=== PATIENT | female | born 1965 | race Caucasian/White ===

== ENCOUNTER → 2016-11-19 | Outpatient (CLI) | payer OTHER ==
[~2016-11-19] MED LIST: ASTELIN30 ML; AVELOX 400 MG400 MG PO; AVIANE1 EACH PO; CELEBREX PO; CENTRUM TABLET1 TAB PO; FLONASE 0.05%50 MCG NS; NASONEX17 GM NS; OXYCODONE PO; OXYCONTIN PO; PREDNISONE 10 M10 M1 PO; SUDAFED30 MG PO; WOMEN S PO; ZOLOFT 50 MG TA50 M1 PO; [UNRECOGNIZED DRUG - OTHER] PO
== END ==
LOC: RAD 16:33
DX: K59.00 Constipation, unspecified (principal); R10.9 Unspecified abdominal pain

== ENCOUNTER → 2017-04-11 | Outpatient (CLI) | payer OTHER | LOC: NUC 06:50 | DX: R07.9 Chest pain, unspecified (principal) ==

== ENCOUNTER → 2017-04-14 | Outpatient (CLI) | payer OTHER | LOC: CAT 10:25 | DX: Z13.6 Encounter for screening for cardiovascular disorders (principal) ==

== ENCOUNTER → 2017-11-10 | Outpatient (CLI) | payer OTHER | LOC: RAD 08:58 | DX: Z12.31 Encounter for screening mammogram for malignant neoplasm of breast (principal) ==

== ENCOUNTER → 2018-01-24 | Outpatient (CLI) | payer OTHER | LOC: RAD 07:51 | DX: R13.19 Other dysphagia (principal); R10.13 Epigastric pain ==

== ENCOUNTER → 2020-08-06 | Outpatient (CLI) | payer OTHER ==
[~2020-08-06] MED LIST changes: +AZELASTINE137 MCG/0. NASAL; +DAILY MULTIPLE1 EACH PO
== END ==
LOC: LAB 07:39
PROVIDERS: ATTEND Orthopaedic Surgery Foot and Ankle Surgery
DX: Z01.812 Encounter for preprocedural laboratory examination (principal); Z20.828 Contact with and (suspected) exposure to other viral communicable diseases

== ENCOUNTER → 2020-08-18 | Outpatient (CLI) | payer OTHER ==
[~2020-08-18] MED LIST changes: +PERCOCET 7.5-31 EAC1 PO
== END ==
LOC: LAB 13:26
PROVIDERS: ATTEND Student in an Organized Health Care Education/Training Program
DX: Z01.812 Encounter for preprocedural laboratory examination (principal); Z20.828 Contact with and (suspected) exposure to other viral communicable diseases

== ENCOUNTER → 2020-08-19 | Day surgery (SDC) | payer OTHER ==
[~2020-08-19] VITALS: Ht 177.8 cm; Wt 74.8 kg
[2020-08-19 13:48] VITALS: BP 145/89
[2020-08-19 15:53] VITALS: BP 145/89
--- NOTE | 2020-08-19 16:26 | EKG ---
[address] [place] [address] ELECTROCARDIOGRAM REPORT Name: PEMA FLYNN Room #: REG [facility]#: [id number] Admission: 08/19/20 Attend Phys: Rashad Nails MD Discharge: Date of : 63 Report #: [id number] [facility] Test Date: 2020-08-19 Test Time: 13:29:28 Pat Name: PEMA FLYNN Department: Room: Gender: F [employer] Reporter: AYUSH : 1965 Requested By: Rashad Nails Order Number: [id number] : Dustin Lai Measurements Intervals Sheridan Rate: 55 P: 26 CA: 146 QRS: 1 QRSD: 99 T: 1 QT: 431 QTc: 413 Interpretive Statements Sinus rhythm Borderline T abnormalities, inferior leads Compared to ECG 11/17/2010 03:07:03 T-wave abnormality now present Electronically Signed On 08-19-2020 16:26:33 TIP PRINTER by Dustin Lai [email or web address] <ELECTRONICALLY SIGNED> By: Dustin Lai MD, [facility] 08/19/20 1626 1329 28 Dustin Lai MD, FACC /EPI
--- NOTE | 2020-08-24 18:18 | O ---
[facility] [place] [address] OPERATIVE REPORT Name: RINAPEMA RJ Room #: REG [facility].#: [id number] Admission: 08/19/20 Attend Phys: Rashad Nails MD Discharge: Date of : 63 Report #: [id number] THIS REPORT FOR: cc: Kehinde Flynn MD, Daniel J. MD Kneidel,Rashad Maurice MD ~ DATE OF SERVICE: 08/19/2020 PREOPERATIVE DIAGNOSES: 1. Right hallux valgus. 2. Right fourth hammertoe. 3. Right fifth toe flexion contracture. POSTOPERATIVE DIAGNOSES: 1. Right hallux valgus. 2. Right fourth hammertoe. 3. Right fifth toe flexion contracture. 4. Right third toe flexion contracture. SURGEON: Dr. Rashad Nails. DERRICK MAN: Susan Fragoso. ANESTHESIA: General. ESTIMATED BLOOD LOSS: Minimal. DRAINS: No drains. TOURNIQUET TIME: One hour and 30 minutes. DESCRIPTION OF PROCEDURE: The patient brought to the operating room where she was placed under general anesthesia. Once under adequate general anesthesia, her right lower extremity was prepped and draped in a sterile manner. The extremity was elevated, exsanguinated and tourniquet placed at 300 mmHg. A dorsal incision over the first tarsometatarsal joint was made. This was dissected down through the soft tissue to the joint, which was then released with a 15 blade. An osteotome and a sagittal saw was then run through this to release it completely. A rotational ____ pin was placed. A sufficient rotation was noted. The separate dorsal incision at the first webspace was made. This was dissected down through soft tissue to the metatarsophalangeal joint. The abductor hallucis tendon was then released off of the sesamoid complex. The joint capsule was fenestrated along with the plantar attachments at the proximal phalanx. A dorsal incision over the second metatarsal was made and the C-clamp was then placed, excellent rotational and longitudinal alignment was then [address] [address] OPERATIVE REPORT Name: PEMA FLYNN Room #: [facility] [id number] Admission: 08/19/20 Attend Phys: Rashad Nails MD Discharge: Date of : 63 Report #: [id number] achieved utilizing the clamp. This was then pinned into place and the ____ was then placed. The bone cuts were then made at the medial cuneiform and the first metatarsal. These were satisfactory. The intervening bone was then removed from the bone cuts with a rongeur and subsequently compression across the joint was achieved after fenestrating the joint with a drill. Excellent alignment was achieved as verified under fluoroscopy. A single compression screw was placed across the joint from lateral to medial, pinned, fixation then across the joint was achieved with 2 plates, one dorsal and one medial. Excellent fixation was achieved with excellent alignment. The patient did have a spur distally, which was then removed through a 1 cm incision over the medial eminence. This wound was irrigated copiously and the capsular layer was repaired with 2-0 Vicryl suture. A dorsal incision over the fourth toe proximal phalanx was then made with dissection carried down to the head of the proximal phalanx, which was then exposed, a sagittal saw were used to resect this. A small rongeur was used to denude the cartilage at the base of the middle phalanx. A drill was then used for the Smart Toe implant and fixation was then achieved with a size 15 Smart Toe implant. Excellent fixation and alignment was achieved as verified under fluoroscopy. A tulalip blade was utilized to perform a flexor tenotomy at both the third and fifth toes due to continued flexion contracture. Excellent alignment was achieved once complete. The wounds were then irrigated copiously and closed with 3-0 Vicryl in the subcutaneous tissues and 3-0 nylon for the skin. The wound was dressed with Xeroform, 4 x 4s, and sterile soft compressive dressing was placed. Tourniquet was let down at 90 minutes. Toes were pink and warm with good capillary refill. There were no complications from the procedure. The patient tolerated the procedure well and was taken to recovery room without incident. <ELECTRONICALLY SIGNED> By: Rashad Nails MD 08/24/20 1818 [id number] [id number] Rashad Nails MD /nt
== END | disposition home or self-care (01) ==
LOC: OR 12:41
PROVIDERS: ATTEND Orthopaedic Surgery Foot and Ankle Surgery
DX: M20.11 Hallux valgus (acquired), right foot (principal); M20.41 Other hammer toe(s) (acquired), right foot; M21.271 Flexion deformity, right ankle and toes; F32.9 Major depressive disorder, single episode, unspecified; Z98.890 Other specified postprocedural states; Z79.899 Other long term (current) drug therapy; Z85.828 Personal history of other malignant neoplasm of skin; Z90.711 Acquired absence of uterus with remaining cervical stump; Z96.652 Presence of left artificial knee joint; Z88.8 Allergy status to other drugs, medicaments and biological substances
CPT/HCPCS: 50010; 50101; 50386; 50951; 56524; 56527; 57091; 57180; 58441; 62110; 62900; 70005

== ENCOUNTER 2021-03-05 06:46 | Inpatient (IN) | payer OTHER ==
[~2021-03-05] VITALS: Ht 177.8 cm; Wt 74.8 kg
[~2021-03-05 06:46] MED LIST changes: +BACTRIM DS TAB1 EACH PO; +MULTI VITAMIN1 EACH PO; +TYLENOL EXTRA500 MG PO
[2021-03-05 08:25] VITALS: BP 138/61
[2021-03-05 11:36] VITALS: BP 134/97
[2021-03-05 12:39] VITALS: BP 118/83
--- NOTE | 2021-03-05 14:11 | NUR ---
ASSESSMENT: CM REVIEWED CHART AND SPOKE WITH PATIENT AT THE BEDSIDE. PT IS ALERT AND ORIENTED X4. PT IS S/P RIGHT TKA. PT REPORTS LIVING IN A HOUSE WITH HER HUSUBAND AND SON WILL BE THERE FOR ABOUT ANOTHER COUPLE WEEKS. PT REPORTS HAVING ABOUT 2 STEPS TO ENTER THE HOME AND NO STEPS SHE HAS TO USE ONCE INSIDE. PT REPORTS BEING INDEPENDENT WITH ADLS. PT REPORTS NEEDING A WALKER FOR DISCHARGE AND HAS NO PREFERENCE OF [employer]. CM NOTIFIED LIASON FROM [facility] TO VERIFY INSURANCE. PT REPORTS THAT SHE DOES NOT CURRENTLY HAVE OUTPATIENT THERAPY ARRANGED. PT REPORTS HAVING HH PREVIOUSLY IN THE PAST BUT UNSURE THE AGENCY. CM WILL CONTINUE TO FOLLOW TO ASSIST NEEDED.
[2021-03-05 15:03] VITALS: BP 118/83
[2021-03-05 15:44] VITALS: BP 116/79
--- NOTE | 2021-03-05 17:16 | O ---
[facility] [place] [address] OPERATIVE REPORT Name: PEMA FLYNN Room #: 434-P [facility]..#: [id number] Admission: 03/05/21 Attend Phys: Torito Delaney MD Discharge: Date of : 63 Report #: [id number] THIS REPORT FOR: cc: Kehinde Flynn MD, Daniel J. MD Clymer, David J. MD ~ DOC #: [id number] Torito Delaney MD DATE OF SERVICE: 03/05/2021 PREOPERATIVE DIAGNOSIS: Degenerative arthritis, right knee. POSTOPERATIVE DIAGNOSIS: Degenerative arthritis, right knee. PROCEDURE: Right total knee arthroplasty. SURGEON: Torito Delaney MD INDICATIONS: This healthy, active and fit 55-year-old female has had early degenerative arthritis involving both knees. She underwent left total knee replacement a number of years ago with good result. Now, she is having progressive right knee pain, although her plain x-ray studies are showing only mild to moderate degenerative change. Her symptoms are rather severe and unresponsive to conservative measures. Given this, she elected to go ahead with total knee replacement. DESCRIPTION OF PROCEDURE: The patient was taken to the operating room where she was placed under general anesthesia. Prophylactic intravenous antibiotics were administered. The right knee and leg were meticulously prepped and draped. A thigh tourniquet inflated to 300 mmHg. An anterior longitudinal skin incision was made and carried through the medial retinaculum. The patella was reflected laterally. Moderate chondromalacia on the patella and the lateral femoral condyle was noted. There was also moderate sized osteochondral defect with some loosening of the surrounding cartilage. There was moderate degenerative tearing of both the medial and lateral meniscus. Findings were consistent with moderate degenerative change. The [employer] knee system was utilized. Intramedullary guides were used on both the femur and the tibia. The femur was cut in 5 degrees of valgus and the tibia cut perpendicular to the long axis of the bone with a 3-degree posterior slope. The femur seemed best suited for a size 5 femoral component. The tibia was best suited for a size 4 tibial component. A trial reduction was performed and a 10 mm insert fit nicely and resulted in good knee range of motion and good stability. The patellar surface was resected and a 35 mm patellar button fit nicely. Appropriate anchor holes were created. [address] [address] OPERATIVE REPORT Name: PEMA FLYNN Room #: 434[place] [facility]#: [id number] Admission: 03/05/21 Attend Phys: Torito Delaney MD Discharge: Date of : 63 Report #: [id number] The intramedullary canal was blocked with bone block on both the femoral and tibial sides. Methyl methacrylate cement was mixed and injected into the porous surface of the proximal tibia. The [employer] size 4 Cassi II right nonporous tibial baseplate was selected. This was impacted into the tibia in appropriate position. It seated nicely and appeared to be secure. Excess cement was removed around its margin. The size 3-4 10 mm Legion cruciate retaining high flexion polyethylene insert was snapped into place. It seated nicely and appeared to be secure. The size 5 right cruciate retaining Legion porous femoral component was impacted on the distal femur. It also seated nicely and appeared to be secure. A 35 mm Cassi II patellar resurfacing button was applied. Using a cement anchor holes, it was secured with a patellar clamp until the cement had hardened. Once the cement was secure and firm range of motion, alignment and stability were once again assessed and felt to be satisfactory. The patella tracks nicely. The knee demonstrates full knee extension and flexion beyond 130 degrees. A single Hemovac was left in the wound exiting through a separate stab incision. The fascia was closed with multiple #1 Vicryl sutures. The tourniquet was deflated after a total tourniquet time of 50 minutes. Good hemostasis was confirmed. The subcutaneous tissues were closed with 0 Monocryl. The skin was closed with skin john. A sterile dressing was applied. The patient was awakened and returned to Recovery Room in good condition. MD PARDEEP Winston/JENNIFER <ELECTRONICALLY SIGNED> By: Torito Delaney MD 03/05/21 1716 7 Torito Delaney MD /nt
--- NOTE | 2021-03-05 18:30 | NUR ---
PT RECEIVED FROM THE ER AT 1110 TO RM 434 ALERT AND IN NO ACUTE DISTRESS. RT KNEE DSNG DRY W/ ICE MATTIE IN PLACE. HEMOVAC DRAIN W/ SANGUINOUS DRAINAGE. SOME MILD NAUSEA RELIEVED BY ZOFRAN. PAIN MANAGED WELL W/ PERCOCET. UP TO BSC W/ STANDBY ASSIST TO VOID AND DID WELL. WILL START THERAPY IN AM. EATING SM AMTS AND DRINKING WELL.
[2021-03-05 20:12] VITALS: BP 97/66
--- NOTE | 2021-03-06 00:29 | NUR ---
ASSUMED PT CARE AT 1900. INTRODUCED SELF TO PT. PT WAS ALERT AND ORIENTED X4. PT HAD A VITA DRSG AT THE R KNEE WHICH WAS INTACT WITH A LITTLE DRAINAGE NOTED. HEMOVAC IN PLACE WITH 390CC NOTED IMMEDIATELY AFTER SHIFT CHANGE. KNEE HIGH SAUL HOSE AND SCDS IN PLACE. PT GOT UP TO USE BSC X2, WITH ADEQUATE URINE OUTPUT. PT C/O NAUSEA PRN MED GIVEN EFFECTIVE. PRN PAIN MED GIVEN FREQ PER PT RQUEST.FALL PRECAUTIONS IN PLACE AND CALL LIGHT WITHIN REACH.
[2021-03-06 01:13] VITALS: BP 107/72
[2021-03-06 04:40] VITALS: BP 91/60
[2021-03-06 06:24] LABS: ABSOLUTE NEUTROPHILS 5.4 thou/uL (1.4-8.2); BASOPHILS 0.3 % (0.0-2.0); EOSINOPHILS 0.5 % (0.0-3.0); HEMATOCRIT 32.3 % (37.0-47.0); HEMOGLOBIN 10.8 gm/dL (12.0-15.0); LYMPHOCYTES 22.5 % (24.0-44.0); MCH 30.9 pg (26.0-34.0); MCHC 33.5 g/dL (28.0-37.0); MCV 92.1 fL (80.0-100.0); MONOCYTES 9.2 % (1.0-8.0); PLATELET COUNT 187 thou/uL (150-400); POLYS 67.5 % (36.0-66.0); RDW 13.8 % (10.5-14.5)
[2021-03-06 06:36] LABS: CALCIUM 8.4 mg/dL (8.5-10.1); CREATININE 0.8 mg/dL (0.6-1.0); MAGNESIUM 1.9 mg/dL (1.8-2.4); POTASSIUM 3.7 mmol/L (3.5-5.1)
[2021-03-06 07:18] VITALS: BP 90/58
--- NOTE | 2021-03-06 12:55 | NUR ---
ASSESSED PT. AT 7:00 AM. PT C/O PAIN AT LEVEL FOUR IN RIGHT KNEE. REMOVED DRAIN VITA DRESSING IS C/D/I. NO REDDNESS OR SWELLING NOTED. PT. IS ONE DAY POST-OP ABLE TO WALK A 100 FEET WITH PT WITH WALKER AND GAIT BELT. PT SAT UP IN CHAIR FOR 2 HOURS IN AM. ABLE TO TRANSFER TO COMMODE WITH ONE ASSIST. VSS, LUNGS CLEAR ABLE TO MOVE LOWER EXTREMITIES UPON COMMAND. WEARING SAUL HOSE IN BED. FALL PRECAUTION IN EFFECT. A X O X4. PAIN HAS CONTINUED THROUGHOUT SHIFT. CONTACTED DR. GALEANO FOR EXTRA DOSE OF PAIN MED. STILL MINIMAL RELIEF. USED ICE PACKS AND REPOSITIONING FOR PAIN RELIEF. CALL LIGHT WITHIN REACH.
--- NOTE | 2021-03-06 14:05 | NUR ---
on-going assessment: CM REVIEWED CHART. [employer] DELIVERED A WALKER TO PATIENTS ROOM. PT IS CONTIUING TO WORK WITH PHYSICAL THERAPY AND HER DRAIN WAS DISCONTINUED. POSSIBLE DISCHARGE IN 1-2 DAYS PER ATTENDING PER HER PROGESS.
[2021-03-06 21:45] VITALS: BP 147/96
[2021-03-07 00:07] LABS: GLYCOHEMOGLOBIN (HGB A1C) 5.3 % (4.8-5.6)
--- NOTE | 2021-03-07 03:46 | NUR ---
PT IS A/O X4 AND IS UP WITH ASSISTANCE USING WALKER AND GB. ROOM AIR. VSS AFEBRILE. C/O PAIN TO RIGHT KNEE. PRN PAIN MEDCICATION GIVEN DIRECTED. PT VOIDS PER TOILET AND CALLS APPROPRIATELY. NO BM THIS SHIFT. PT IS PLEASANT AND COOPERATIVE. C/O NOT GETTING SLEEP LASTNIGHT. PRN SLEEP MEDICATION GIVEN DIRECTED TO HELP PT SLEEP THIS NOC. AND SON VISITED PT IN THE EVENING. PT APPEARS TO BE IN GOOD SPIRITS. PARTIAL PAIN RELIEF NOTED AFTER MEDICATION ADMINISTRATION. VITA DRSG TO RIGHT KNEE REMAINS C/D/I WITH NO DRAINAGE. SCD'S, KNEE HIGH SAUL HOSE, AND FALL PRECAUTIONS IN PLACE, CALL LIGHT IS WITHIN REACH. CALLS OUT APPROPRIATELY FOR ASSITANCE. WILL CONTINUE TO MONITOR.
[2021-03-07 05:38] LABS: HEMATOCRIT 31.9 % (37.0-47.0); HEMOGLOBIN 10.7 gm/dL (12.0-15.0); MCH 30.7 pg (26.0-34.0); MCHC 33.5 g/dL (28.0-37.0); MCV 91.8 fL (80.0-100.0); RBC 3.48 mil/uL (4.20-5.00); RDW 13.8 % (10.5-14.5); WBC 7.3 thou/uL (4.0-11.0)
[2021-03-07 07:30] VITALS: BP 115/80
--- NOTE | 2021-03-07 09:26 | D ---
[facility] [place] [address] DISCHARGE SUMMARY Name: PEMA FLYNN [id number] Ad[facility]: 03/05/21 Attend Phys: Torito Delaney MD Discharge: Date of : 63 Report #: [id number] THIS REPORT FOR: cc: Kehinde Flynn MD, Daniel J. MD Clymer,Torito Olsen MD ~ DATE OF SERVICE: 03/07/2021 FINAL DIAGNOSIS: Degenerative arthritis, right knee. OPERATION AND PROCEDURES: Right total knee arthroplasty. HISTORY: This healthy, active and fit 55-year-old female has early degenerative arthritis in both knees. She underwent left total knee replacement a number of years ago with excellent result. She is now having progressive problems on the right side, which are unresponsive to conservative measures. She has elected to go ahead with total knee replacement. HOSPITAL COURSE: The patient was admitted and taken to the operating room on 03/05. She underwent right total knee replacement, which she tolerated well. Clinical findings and x-rays looked good. Postoperatively, she did have quite a bit of Hemovac drainage, but her hemoglobin has remained stable and drainage has stopped. Her Hemovac drain has been removed. The dressing remains dry. She has made progress with range of motion, but did have a lot of pain on the first postoperative day, which required IV narcotics and limited activity. Today, she is much improved noting pain is well controlled with gentle activity and oral pain medications. She is hoping for hospital discharge today pending continued pain control and clearance by Physical Therapy. DISCHARGE MEDICATIONS: Include Xarelto 10 mg daily and hydrocodone 10/325 one q. 6 hours as needed for pain, Zoloft 50 mg at bedtime. She will continue ice and elevation with very gentle limited range of motion and activity at home. I have asked her to call me should there be any problems or questions. We will plan to see her back in the office in 10-14 days for followup. <ELECTRONICALLY SIGNED> By: Torito Delaney MD 03/07/21 0926 0822 Torito Delaney MD /nt
--- NOTE | 2021-03-07 09:47 | NUR ---
Assessed pt at 7:00 am. Pt AXOX4, less pain than yesterday at level 3. Pt requested Tramadol. Lungs clear bowel sounds sluggish. Lillie dry C/D/I wrapped in ice pack. Pt up to bathroom with gaitbelt and walker X 1 assist. Disscusion about possible discharge today. Pt concerned about pain control. Bed in low position, fall precautions in place. Call light within reach. Will continue to monitor this shift.
[2021-03-07 15:50] VITALS: BP 119/78
[2021-03-07 19:35] VITALS: BP 110/72
[2021-03-08 03:40] VITALS: BP 112/68
--- NOTE | 2021-03-08 04:10 | NUR ---
ASSUMED PT AT 1900. INTRODUCED SELF TO PT. PT IS ALERT AND ORIENTED X4. PT HAS VITA DRESSING ON R KNEE WHICH IS DRY AND INTACT AND HAS SMALL BLOOD STAIN. PT PREFERS [employer] FOR PAIN MANAGEMENT BECAUSE IT IS MORE EFFECTIVE PER PT. PT AMBULATED TO THE BR WITH WALKER AND GB WITHOUT ANY ASSISTANCE. PT CLAIMS TO BE MORE COMFORTABLE USING THE BR. PT REQUESTED FOR SLEEPING MED. BED ON LOWEST LOCKED POSITION WITH BED ALARAM ON AND CALL LIGHT WITHIN REACH.
[2021-03-08 05:41] LABS: HEMATOCRIT 28.5 % (37.0-47.0); HEMOGLOBIN 9.7 gm/dL (12.0-15.0); MCH 31.3 pg (26.0-34.0); MCV 92.2 fL (80.0-100.0); RBC 3.09 mil/uL (4.20-5.00); WBC 7.2 thou/uL (4.0-11.0)
--- NOTE | 2021-03-08 06:15 | NUR ---
ASSUMED PT CARE AT 1900. INTRODUCED SELF TO PT. PT IS ALERT AND ORIENTED X4. PT HAS VITA DRESSING ON R KNEE WHICH IS DRY AND INTACT WITH SMALL BLOOD STAIN. PT PREFER [employer] FOR PAIN MANAGEMENT BECAUSE IT IS MORE EFFECTIVE PER PT. PT USED THE BR WITH WALKER AND GB WITH MIN ASSISTANCE. PT CLAIMS TO BE MORE COMFORTABLE USING THE BR NOW. BED ON LOWSET LOCKED POSITION WITH BED ALARM ON AND CALL LIGHTV WITHIN REACH.
[2021-03-08] MEDS ORDERED: SENNA8.6 MG PO (08:54)
[2021-03-08] MEDS ORDERED: PERCOCET 10-321 EACH PO (08:54)
[2021-03-08] MEDS ORDERED: XARELTO10 MG PO (08:54)
[2021-03-08] MEDS ORDERED: ZOFRAN ODT4 MG PO (09:01)
--- NOTE | 2021-03-08 11:39 | NUR ---
PT ASSESSED AT START OF SHIFT. STATES DOING BETTER BUT STILL HAVING OCCASIONAL MILD NAUSEA. DISCUSSED PLAN FOR TAKING SOME FOOD BEFORE TAKING PILL AND SHE AGREED. NO BM SINCE SURGERY. DULCOLAX SUPP GIVEN W/ VERY SMALL RESULTS. AWAITING TERAPIST FOR REHAB.
== END 2021-03-08 17:10 | disposition home or self-care (01) | DRG 470 ==
LOC: OR 06:46 → TBA 06:46 → OR 08:59 → 4S 11:06 → EDSTATUS 11:26 → PRE 12:52 → OR 17:00 → 4S 19:11
PROVIDERS: Hospitalist; Nurse Practitioner; ADMIT Orthopaedic Surgery; ATTEND Orthopaedic Surgery
PROC: 3E0T3BZ Introduction of Anesthetic Agent into Peripheral Nerves and Plexi, Percutaneous Approach (ICD-10-PCS; principal; 2021-03-05)
PROC: 0SRC0J9 Replacement of Right Knee Joint with Synthetic Substitute, Cemented, Open Approach (ICD-10-PCS; principal; 2021-03-05)
DX: M17.11 Unilateral primary osteoarthritis, right knee (principal); D62 Acute posthemorrhagic anemia; F32.9 Major depressive disorder, single episode, unspecified; F41.9 Anxiety disorder, unspecified; K21.9 Gastro-esophageal reflux disease without esophagitis; I95.9 Hypotension, unspecified; K59.00 Constipation, unspecified; Z96.652 Presence of left artificial knee joint; Z90.49 Acquired absence of other specified parts of digestive tract; Z88.5 Allergy status to narcotic agent; Z90.711 Acquired absence of uterus with remaining cervical stump
CPT/HCPCS: 10102; 50010; 50101; 50415; 50954; 51130; 51225; 51320; 51412; 52001; 52282; 56525; 57095; 57103; 57104; 57180; 58449; 62110; 62900; 64043; 65060; 70005